=== PATIENT | male | born 1970 | race Caucasian/White ===

== ENCOUNTER 2018-05-26 10:16 | Emergency (ER) | payer OTHER ==
[2018-05-26] MEDS ORDERED: FENTANYL CITR 100 MCG/2 ML ONE (11:34)
--- NOTE | 2018-05-26 13:26 | RAD REPORT ---
EXAM DESCRIPTION: MRI - Lumbar Spine Wo Con - 05/26/2018 1:05 pm CLINICAL HISTORY: Back pain, radiculopathy COMPARISON: None. TECHNIQUE: Sagittal T1-weighted, T2-weighted and T2-STIR weighted sequences were obtained. Axial T1 -weighted and heavily T2-weighted sequenceswere obtained through the lumbar disc levels. FINDINGS: Lumbar bodies are normal in height and alignment. No suspicious marrow signal. No paraspi nal masses. Conus is normal with no clumping or thickening of the cauda equina. T12-L1 level: No significant findings. L1-2 level: Disc is thinned with early desiccation change. Prominent anterior disc bulge and endplate spurring changes are present. Minimal disc bulge in the central canal and right exit foramen. No kathy tral spinal stenosis or significant foraminal encroachment. L2-3 level: Disc is desiccated. There is a prominent disc bulge across the central canal and into eac h exit foramen. Annular fissure is present. No central spinal stenosis. No significant foraminal encr oachment seen. L3-4 level: Disc is desiccated. No herniation, disc bulge or stenosis findings. L4-5 level: Midline and right-sided disc bulge is present. No central spinal stenosis. There is minim al flattening of the right anterior thecal sac. Canal diameter is 10 mm. Mild disc bulge in the right foramen without significant foraminal stenosis. Facet joint degenerative changes are present. L5-S1 level: Disc is thinned and desiccated. Posterior disc bulge and endplate spurring changes are p resent encroaching into the central canal. There is a mild flattening of the anterior thecal sac but no central spinal stenosis. Midline canal is at least 11 mm. Disc bulge and spurring cause a moderate right foraminal stenosis. No significant left foraminal encroachment. Facet degenerative changes are present. IMPRESSION: Significant degenerative disc disease L5-S1 without central spinal stenosis. Moderate ri ght foraminal encroachment is seen at L5-S1. Degenerative disc, endplate and facet changes in the lumbar spine as detailed. No acute or destructiv e bone process.
--- NOTE | 2018-05-26 14:21 | ER ---
Nurse's Notes [facility] Name: Delroy Del Castillo Age: 48 yrs Sex: Male : 1970 Arrival Date: 05/26/2018 Time: 10:20 Bed 10 Private MD: Xu Reynolds Diagnosis: Extensive bulging discs L1-S1 with urinary retention Presentation: 05/26 10:29 Presenting complaint: Right sided low back pain that radiates to right upper thigh and hb right groin x 5 days. Transition of care: patient was not received from another setting of care. Onset of symptoms was May 21, 2018. Initial Sepsis Screen: Does the patient meet any 2 criteria? RR > 20 per min. Does the patient have a suspected source of infection? Yes:. Care prior to arrival: None. 10:29 Method Of Arrival: Wheelchair hb 10:29 Acuity: EBONY 4 hb 15:28 Risk Assessment: Do you want to hurt yourself or someone else? Patient reports no ss desire to harm self or others. Initial Sepsis Screen: Does the patient have a suspected source of infection? No. Patient's initial sepsis screen is negative. Historical: - Allergies: 10:30 No Known Allergies; hb - Home Meds: 10:30 None [Active]; hb - PMHx: 10:30 None; hb - PSHx: 10:30 None; hb - Immunization history:: Adult Immunizations up to date. - Social history:: Smoking status: Patient/guardian denies using tobacco. - Ebola Screening: : No symptoms or risks identified at this time. Screenin:00 Abuse screen: Denies threats or abuse. Denies injuries from another. Nutritional ss screening: No deficits noted. Tuberculosis screening: No symptoms or risk factors identified. Never had TB. Fall Risk None identified. Assessment: 10:40 General: Appears in no apparent distress. uncomfortable, Behavior is cooperative, hb anxious. Pain: Pain currently is 10 out of 10 on a pain scale. Neuro: Level of Consciousness is awake, alert, obeys commands, Oriented to person, place, time, situation. Cardiovascular: Capillary refill < 3 seconds Patient's skin is warm and dry. Respiratory: Airway is patent Respiratory effort is even, unlabored, Respiratory pattern is regular, symmetrical, Breath sounds are clear bilaterally. GI: Abdomen is non-distended, Bowel sounds present X 4 quads. Abd is soft and non tender X 4 quads. Reports cramping, nausea, vomiting. : Reports unable to empty bladder. EENT: No signs and/or symptoms were reported regarding the EENT system. Derm: Skin is intact, is healthy with good turgor. Musculoskeletal: Reports low back pain that radiated to right thigh and right groin. 11:30 Reassessment: Patient appears in no apparent distress at this time. Patient and/or hb family updated on plan of care and expected duration. Pain level reassessed. Patient is alert, oriented x 3, equal unlabored respirations, skin warm/dry/pink. Vital Signs: 10:30 BP 137 / 74; Pulse 57; Resp 16; Temp 98.1; Pulse Ox 100% on R/A; Pain 10/10; hb 14:41 Weight 92.99 kg (M); ss 14:41 BP 142 / 85; Pulse 54; Resp 16; Pulse Ox 98% on R/A; Pain 3/10; ss ED Course: 10:20 Patient arrived in ED. rg4 10:20 Xu Reynolds MD is Private Physician. rg4 10:30 Triage completed. hb 10:30 Arm band placed on. hb 10:36 Roseanna Coe, CHARLES is Primary Nurse. ss 10:39 Madelyn Garzno FNP-C is PHCP. snw 10:39 Beck Kaiser MD is Attending Physician. snw 11:00 Patient has correct armband on for positive identification. Bed in low position. Call ss light in reach. 12:33 Patient moved to MRI via wheelchair. em2 13:49 initiated a transfer with [facility] the [facility] transfer center. eb 14:02 Bladder scan completed. 449 mL. ss 14:[address] Hansen the Neurosurgeon pilot control operator with Madelyn ACCOUNTING RECONCILIATION CLERK for patient transfer eb consultation. 14:08 connected the hospitalist pilot control operator fro [facility] with Madelyn ACCOUNTING RECONCILIATION CLERK for patient eb consultation. 14:25 administrative approval given by [facility] Sheriff/ Dr. Moreland has accepted the eb patient in transfer/ pt going to [address] [place] [address] bed 2234/ report to be called to [phone]. 14:27 Inserted saline lock: 20 gauge in right antecubital area, using aseptic technique. ss Blood collected. 15:27 No provider procedures requiring assistance completed. Patient transferred, IV remains ss in place. Administered Medications: 11:30 Drug: fentaNYL (PF) 50 mcg Route: IM; Site: left deltoid; ss 13:37 Follow up: Response: No adverse reaction; Pain is decreased ss 14:39 Drug: NS 0.9% 1000 ml Route: IV; Rate: 125 ml/hr; Site: right antecubital; ss 14:45 Follow up: IV Status: Infusion continued upon transfer ss 15:18 Drug: fentaNYL (PF) 50 mcg Route: IVP; Site: right antecubital; ss 19:22 Follow up: Response: No adverse reaction; Pain is decreased Outcome: 14:21 ER care complete, transfer ordered by . snw 15:27 Transferred by ground EMS to [facility], Transfer form completed. ss X-rays sent w/ patient. 15:27 Condition: good 15:27 Instructed on the need for transfer, Demonstrated understanding of instructions. 15:29 Patient left the ED. Signatures: Dispatcher [employer] EDMS Madelyn Garzon, FIBERGLASS GRINDER-C FIBERGLASS GRINDER-Csnw Roseanna Coe RN RN Nemesio Schafer em2 Brittney Isabel RN RN Isabella Villegas Vivian Juarez Corrections: (The following items were deleted from the chart) 12:13 11:27 Patient moved to [facility] via wheelchair. em2 lc 12:13 11:47 In radiology for Lumbar Spine Wo Con+MRI.RAD.CAROLE. EDMS 12:13 11:55 MRI completed. Patient tolerated well. em2 lc 12:13 11:55 Patient moved back from MRI. em2 lc 14:44 10:40 : No signs and/or symptoms were reported regarding the genitourinary system. hb ss
--- NOTE | 2018-05-26 14:22 | EDPHYS ---
Physician Documentation [facility] Name: Delroy Del Castillo Age: 48 yrs Sex: Male : 1970 Arrival Date: 05/26/2018 Time: 10:20 Bed 10 Private MD: Xu Reynolds ED Physician Beck Kaiser HPI: 05/26 12:50 This 48 yrs old Male presents to ER via Wheelchair with complaints of Low snw Back Pain, Groin Pain. 12:50 The patient presents with pain that is acute, with no known mechanism of injury, and snw decreased range of motion, and spasm, stiffness, and tenderness. The symptoms are located in the low back. Location: right low back. The problem was sustained from unknown cause. Onset: The symptoms/episode began/occurred suddenly, 5 day(s) ago, and became worse and became persistent. Modifying factors: The patient symptoms are alleviated by nothing. Severity of symptoms: At their worst the symptoms were incapacitating. The patient has not experienced similar symptoms in the past. The patient has been recently seen by a physician: pt was on vacation in [place]. Spent two days seeking care in ED. US of scrotum, CT of abd and pelvis with and without contrast negative. Historical: - Allergies: 10:30 No Known Allergies; hb - Home Meds: 10:30 None [Active]; hb - PMHx: 10:30 None; hb - PSHx: 10:30 None; hb - Immunization history:: Adult Immunizations up to date. - Social history:: Smoking status: Patient/guardian denies using tobacco. - Ebola Screening: : No symptoms or risks identified at this time. ROS: 12:43 Constitutional: Negative for fever, chills, and weight loss, Eyes: Negative for injury, snw pain, redness, and discharge, ENT: Negative for injury, pain, and discharge, Neck: Negative for injury, pain, and swelling, Cardiovascular: Negative for chest pain, palpitations, and edema, Respiratory: Negative for shortness of breath, cough, wheezing, and pleuritic chest pain, Abdomen/GI: Negative for abdominal pain, nausea, vomiting, diarrhea, and constipation, Skin: Negative for injury, rash, and discoloration, Neuro: Negative for headache, weakness, numbness, tingling, and seizure, Psych: Negative for depression, anxiety, suicide ideation, homicidal ideation, and hallucinations. 12:43 Back: Positive for decreased range of motion, pain at rest, pain with movement, radiated pain, of the right low back. 12:43 : Positive for pain to right groin and scrotum. 12:43 MS/extremity: Positive for decreased range of motion, pain, paresthesias, tingling, of the right hip/leg. Exam: 12:42 Constitutional: This is a well developed, well nourished patient who is awake, alert, snw and in no acute distress. Head/Face: Normocephalic, atraumatic. Eyes: Pupils equal round and reactive to light, extra-ocular motions intact. Lids and lashes normal. Conjunctiva and sclera are non-icteric and not injected. Cornea within normal limits. Periorbital areas with no swelling, redness, or edema. ENT: Nares patent. No nasal discharge, no septal abnormalities noted. Tympanic membranes are normal and external auditory canals are clear. Oropharynx with no redness, swelling, or masses, exudates, or evidence of obstruction, uvula midline. Mucous membranes moist. Neck: Trachea midline, no thyromegaly or masses palpated, and no cervical lymphadenopathy. Supple, full range of motion without nuchal rigidity, or vertebral point tenderness. No Meningismus. Chest/axilla: Normal chest wall appearance and motion. Nontender with no deformity. No lesions are appreciated. Cardiovascular: Regular rate and rhythm with a normal S1 and S2. No gallops, murmurs, or rubs. Normal PMI, no JVD. No pulse deficits. Respiratory: Lungs have equal breath sounds bilaterally, clear to auscultation and percussion. No rales, rhonchi or wheezes noted. No increased work of breathing, no retractions or nasal flaring. Abdomen/GI: Soft, non-tender, with normal bowel sounds. No distension or tympany. No guarding or rebound. No evidence of tenderness throughout. Back: No spinal tenderness. No costovertebral tenderness. limited range of motion of right leg. Decreased sensation to right anterior thigh Skin: Warm, dry with normal turgor. Normal color with no rashes, no lesions, and no evidence of cellulitis. MS/ Extremity: Pulses equal, no cyanosis. Neurovascular intact. Full, normal range of motion. Neuro: Awake and alert, GCS 15, oriented to person, place, time, and situation. Cranial nerves II-XII grossly intact. Motor strength 5/5 in all extremities. Sensory grossly intact. Cerebellar exam normal. Normal gait. Psych: Awake, alert, with orientation to person, place and time. Behavior, mood, and affect are within normal limits. Vital Signs: 10:30 BP 137 / 74; Pulse 57; Resp 16; Temp 98.1; Pulse Ox 100% on R/A; Pain 10/10; hb 14:41 Weight 92.99 kg (M); ss 14:41 BP 142 / 85; Pulse 54; Resp 16; Pulse Ox 98% on R/A; Pain 3/10; ss MDM: 10:41 Patient medically screened. snw 14:07 Data reviewed: vital signs, nurses notes. Data interpreted: Pulse oximetry: on room air snw is 100 %. Interpretation: normal. Counseling: I had a detailed discussion with the patient and/or guardian regarding: the historical points, exam findings, and any diagnostic results supporting the discharge/admit diagnosis, the need to transfer to another facility, for higher level of care, [facility] does not immediately have the required specialist. Physician consultation: Dr Hansen was called at 14:11, was contacted at 14:11, regarding regarding transfer, patient's condition, Dr. Hansen kindly accepts pt in transfer. Will speak with Hospitalist as well. Spoke with Dr. Moreland who also kindly accepts pt in transfer.. 05/26 14:07 Order name: Basic Metabolic Panel; Complete Time: 15:08 snw 05/26 14:07 Order name: CBC with Diff snw 05/26 11:21 Order name: MRI Lumbar Spine wo Con; Complete Time: 13:30 snw 05/26 14:07 Order name: Labs collected and sent; Complete Time: 14:27 snw 05/26 14:07 Order name: Misc. Order: weight on chart please; Complete Time: 14:48 snw Administered Medications: 11:30 Drug: fentaNYL (PF) 50 mcg Route: IM; Site: left deltoid; ss 13:37 Follow up: Response: No adverse reaction; Pain is decreased ss 14:39 Drug: NS 0.9% 1000 ml Route: IV; Rate: 125 ml/hr; Site: right antecubital; ss 14:45 Follow up: IV Status: Infusion continued upon transfer ss 15:18 Drug: fentaNYL (PF) 50 mcg Route: IVP; Site: right antecubital; ss 19:22 Follow up: Response: No adverse reaction; Pain is decreased ss Disposition: 05/26/18 14:[address] [facility]. Diagnosis is Extensive bulging discs L1-S1 with urinary retention. - Reason for transfer: Higher level of care. - Accepting physician is Dr. Hansen/Dr. Moreland. - Condition is Stable. - Problem is new. - Symptoms are unchanged. Addendum: 06/02/2018 09:23 Co-signature as Attending Physician, Beck Kaiser MD I agree with the assessment and k dr plan of care. Signatures: Dispatcher [employer] EDMS Beck Kaiser MD MD [facility] Madelyn Garzon, REPAIRER AUTO CLOCKS-C REPAIRER [employer]OCKS-Csnw Roseanna Coe RN RN Brittney Isabel RN RN Corrections: (The following items were deleted from the chart) 05/26 14:28 14:21 05/26/2018 14:[address] [facility]. Diagnosis is snw Extensive bulging discs L1-S1 with urinary retention. Reason for transfer: Higher level of care. Accepting physician is Dr. Hansen/Dr. Herrera. Condition is Stable. Problem is new. Symptoms are unchanged. snw 14:29 14:07 Physician consultation: Dr Hansen was called at 14:11, was contacted at 14:11, sn regarding regarding transfer, patient's condition, Dr. Hansen kindly accepts pt in transfer. Will speak with Hospitalist as well. Spoke with Dr. Long who also kindly accepts pt in transfer., snw 15:29 14:28 05/26/2018 14:[address] [facility]. Diagnosis is ss Extensive bulging discs L1-S1 with urinary retention. Reason for transfer: Higher level of care. Accepting physician is Dr. Hansen/Dr. Moreland. Condition is Stable. Problem is new. Symptoms are unchanged. snw
[2018-05-26] MEDS ORDERED: NA CHLORIDE 0.9% 1,000 ML ONE (14:41)
== END 2018-05-26 15:29 | disposition short-term general hospital (02) ==
LOC: ER 10:16
DX: M51.86 Other intervertebral disc disorders, lumbar region (principal); R33.9 Retention of urine, unspecified; M54.5 Low back pain
CPT/HCPCS: 36415; 72148; 80048; 85025; J3010; J7030